=== PATIENT | female | born 1940 | race Two or more races ===

== ENCOUNTER 2016-09-21 14:25 | Emergency (ER) | payer MEDICARE, MEDICAID ==
[~2016-09-21] VITALS: Ht 152.4 cm; Wt 70.3 kg
[2016-09-21] MEDS ORDERED: ALBUTEROL FS 2.5 MG/3 ML VIAL.NEB ONE (14:56)
[2016-09-21] MEDS ORDERED: IPRATROPIUM NEB FS 0.5 MG/2.5 ML AMPUL.NEB ONE (14:56)
[2016-09-21] MEDS ORDERED: DEXAMETHASONE SOD PHOSPHATE 10 MG/ML VIAL ONE (14:57)
[2016-09-21] MEDS ORDERED: CEFTRIAXONE 1GM BAG (ER ONLY) 50 ML IV ONE ×2 (14:57→15:00)
[2016-09-21] MEDS ORDERED: IV NS 0.9% 1,000 ML ONE (14:58)
[2016-09-21] MEDS ORDERED: IV SET PRIMARY 1 EA INFUS.SET MC ONE (14:58)
[2016-09-21] MEDS ORDERED: IV SET PRIMARY PUMP SET 1 EA INFUS.SET MC ONE (14:58)
[2016-09-21] MEDS ORDERED: IPRATROPIUM NEB FS 0.5 MG/2.5 ML AMPUL.NEB NEB ONE (15:00)
[2016-09-21] MEDS ORDERED: IV NS 0.9% 1,000 ML BAG IV ONE (15:00)
[2016-09-21] MEDS ORDERED: ALBUTEROL FS 2.5 MG/3 ML VIAL.NEB NEB ONE (15:00)
[2016-09-21] MEDS ORDERED: DEXAMETHASONE SOD PHOSPHATE 10 MG/ML VIAL IV ONE (15:00)
[2016-09-21] MEDS ORDERED: AZITHROMYCIN 500 MG in IV D5W 250 ML IV ONE (15:00)
[2016-09-21 15:10] LABS: BASOPHILS # (AUTO) 0.1 /CMM (0.0-0.2); BASOPHILS % (AUTO) 0.9 % (0.0-2.0); DIFF TOTAL % 100 %; EOSINOPHILS # (AUTO) 0.3 /CMM (0.0-0.7); HEMATOCRIT 44 % (33-45); HEMOGLOBIN 13.9 g/dL (11.5-14.8); LYMPHOCYTES # (AUTO) 2.1 /CMM (0.8-4.8); LYMPHOCYTES % (AUTO) 32.4 % (20.0-44.0); MEAN CORPUSCULAR HEMOGLOBIN 26 PG (26.0-33.0); MEAN CORPUSCULAR HGB CONC 32 g/dl (31.0-36.0); MEAN CORPUSCULAR VOLUME 81 fL (82-100); MONOCYTES # (AUTO) 0.4 /CMM (0.1-1.30); MONOCYTES % (AUTO) 6.9 % (2.0-12.0); NEUTROPHILS # (AUTO) 3.5 /CMM (1.8-8.9); NEUTROPHILS % (AUTO) 55.8 % (43.0-81.0); PLATELET COUNT (AUTO) 164 /CMM (150-450); RED BLOOD CELL COUNT(AUTO) 5.41 MIL/uL (4.0-5.2); WHITE BLOOD COUNT (AUTO) 6.4 K/uL (4.3-11.0)
[2016-09-21 15:20] LABS: ANION GAP 11 (5-14); CALCIUM, SERUM 9.4 mg/dL (8.5-10.1); CARBON DIOXIDE 28 mmol/L (21-32); CHLORIDE 104 mmol/L (98-107); CREATININE 0.7 mg/dL (0.6-1.3); GLUCOSE 93 mg/dL (74-106); POTASSIUM 3.9 mmol/L (3.5-5.1); SODIUM SERUM 139 mmol/L (136-145); UREA NITROGEN, BLOOD 11 mg/dL (7-18)
[2016-09-21 15:25] LABS: ALANINE AMINOTRANSFERASE 15 U/L (12-78); ALBUMIN 3.8 g/dL (3.4-5.0); ASPARTATE AMINOTRANSFERASE 14 U/L (15-37); BILIRUBIN,DIRECT 0.1 mg/dL (0.0-0.2); BILIRUBIN,TOTAL 0.5 mg/dL (0.2-1.0); INDIRECT BILIRUBIN 0.4 mg/dL (0.0-1.1); TOTAL PROTEIN, SERUM 6.9 g/dL (6.4-8.2)
[2016-09-21 15:28] LABS: TROPONIN I < 0.017 ng/mL (0.00-0.056)
[2016-09-21 16:28] VITALS: BP 145/81
== END 2016-09-21 16:30 | disposition home or self-care (01) ==
LOC: EDSEX 14:28 → ER 14:28
DX: J20.9 Acute bronchitis, unspecified (principal); J45.909 Unspecified asthma, uncomplicated; F17.200 Nicotine dependence, unspecified, uncomplicated
CPT/HCPCS: 36415; 71010; 80048; 80076; 84484; 85025; 93005; 94640 ×2; 96365 ×2; 96375; 99285; A4606; J0456; J0696; J1100; J7030; J7060; Z7610

== ENCOUNTER 2022-08-05 07:59 | Emergency (ER) | payer MEDICARE, OTHER ==
[~2022-08-05] VITALS: Ht 157.5 cm; Wt 56.2 kg
[2022-08-05 09:53] LABS: BILIRUBIN,URINE 2+ (NEGATIVE); COLOR,URINE RED (YELLOW); LEUKOCYTE ESTERASE ,URINE 2+ (NEGATIVE); NITRITE, URINE POSITIVE (NEGATIVE); PH,URINE 6.5 (5.0-8.0); PROTEIN,URINE 3+ mg/dl (NEGATIVE); UGLUCOSE TRACE mg/dL (NEGATIVE)
[2022-08-05 10:27] LABS: BACTERIA,URINE Many /HPF (None Seen); RBC,URINE 51-80 /HPF (0-2); SQUAMOUS EPITHELIAL CELL,UR Few /HPF (None Seen)
[2022-08-05] MEDS ORDERED: CEPH500C2 PO ×2 (11:19→14:20)
[2022-08-05] MEDS ORDERED: CEPHALEXIN MONOHYDRATE 500 MG CAPSULE PO ONE ×2 (11:26→11:30)
--- NOTE | 2022-08-05 11:34 | NUR ---
CALLED SON ABILIO [phone]
--- NOTE | 2022-08-05 11:37 | NUR ---
[facility] [phone]
--- NOTE | 2022-08-05 11:40 | NUR ---
[facility] CALLED ETA [phone]
--- NOTE | 2022-08-05 13:08 | NUR ---
[facility] ARRIVED FOR TRANSPORT.
--- NOTE | 2022-08-05 13:11 | NUR ---
CALLED DAUGHTER WILL CONTACT CAREGIVER YAZ TO ACCEPT PT.
--- NOTE | 2022-08-05 13:18 | NUR ---
PICKED UP BY [facility] [address] IN STABLE CONDITION. ALL BELONGINGS BROUGHT WITH THE PATIENT. PATIENT WILL BE BROUGHT HOME ([address]) WHERE CAREGIVER IS WAITING FOR HER.
[2022-08-05 13:26] VITALS: BP 135/73
== END 2022-08-05 13:27 | disposition home or self-care (01) ==
LOC: ER 08:05
DX: N30.01 Acute cystitis with hematuria (principal); J45.909 Unspecified asthma, uncomplicated; Z79.899 Other long term (current) drug therapy
CPT/HCPCS: 81001; 87086-TC

== ENCOUNTER 2023-09-21 23:51 | Emergency (ER) | payer MEDICARE, OTHER ==
[~2023-09-21] VITALS: Ht 157.5 cm; Wt 56.7 kg
[~2023-09-21 23:51] MED LIST: CEPH500C2 PO
[2023-09-22 02:04] VITALS: BP 136/62; TEMP 98.4; O2SAT 97
== END 2023-09-22 02:04 | disposition home or self-care (01) ==
LOC: ER 23:53
DX: R05.9 Cough, unspecified (principal); J45.909 Unspecified asthma, uncomplicated; Z20.822 Contact with and (suspected) exposure to COVID-19
CPT/HCPCS: 71045-TC